=== PATIENT | male | born 1955 | race Native Hawaiian/Other Pacific Islander ===

== ENCOUNTER 2017-10-09 11:46 | Day surgery (SDC) | payer OTHER ==
[2017-10-09 13:11] LABS: POTASSIUM 4.2 mmol/L (3.6-5.2)
== END 2017-10-09 16:17 | disposition home or self-care (01) ==
LOC: OR 11:46
PROVIDERS: Internal Medicine Gastroenterology
PROC: 0DB38ZZ Excision of Lower Esophagus, Via Natural or Artificial Opening Endoscopic (ICD-10-PCS; principal; 2017-10-09)
PROC: 0DB88ZZ Excision of Small Intestine, Via Natural or Artificial Opening Endoscopic (ICD-10-PCS; 2017-10-09)
PROC: 0DB68ZZ Excision of Stomach, Via Natural or Artificial Opening Endoscopic (ICD-10-PCS; 2017-10-09)
PROC: 0D758ZZ Dilation of Esophagus, Via Natural or Artificial Opening Endoscopic (ICD-10-PCS; 2017-10-09)
DX: K21.0 Gastro-esophageal reflux disease with esophagitis (principal); K22.2 Esophageal obstruction; K29.50 Unspecified chronic gastritis without bleeding; K29.80 Duodenitis without bleeding; R13.19 Other dysphagia; K26.9 Duodenal ulcer, unspecified as acute or chronic, without hemorrhage or perforation; R10.13 Epigastric pain; R19.7 Diarrhea, unspecified
CPT/HCPCS: 80053; J2001; J2250; J2704